=== PATIENT | female | born 1985 | race Caucasian/White ===

== ENCOUNTER → 2017-12-20 | Outpatient (CLI) | payer OTHER ==
[~2017-12-20] MED LIST: BUPIVACAINE MPF 0.25% 10 ML VIAL. ONE; DEXAMETHASONE SOD PHOS 4 MG/ML VIAL ONE; IOHEXOL 300 MG/ML 50 ML VIAL. ONE; LIDOCAINE 1% PF 30 ML VIAL. ONE
== END | disposition home or self-care (01) ==
LOC: SURG 10:04
PROVIDERS: ATTEND Anesthesiology Pain Medicine
DX: M54.16 Radiculopathy, lumbar region (principal); J30.2 Other seasonal allergic rhinitis; Z88.6 Allergy status to analgesic agent
CPT/HCPCS: 64483; 99213; J1100; J2001; J3490; Q9967

== ENCOUNTER → 2018-01-30 | Outpatient (CLI) | payer OTHER ==
[~2018-01-30] MED LIST changes: -DEXAMETHASONE SOD PHOS 4 MG/ML VIAL ONE; -IOHEXOL 300 MG/ML 50 ML VIAL. ONE
== END | disposition home or self-care (01) ==
LOC: SURG 12:31
PROVIDERS: ATTEND Anesthesiology Pain Medicine
DX: M47.812 Spondylosis without myelopathy or radiculopathy, cervical region (principal)
CPT/HCPCS: 64490; 64491; J2001; J3490

== ENCOUNTER → 2018-02-14 | Outpatient (CLI) | payer OTHER | END | disposition home or self-care (01) | LOC: SURG 13:03 | PROVIDERS: ATTEND Anesthesiology Pain Medicine | DX: M47.812 Spondylosis without myelopathy or radiculopathy, cervical region (principal); Z88.6 Allergy status to analgesic agent | CPT/HCPCS: 64490; 64491; J2001; J3490 ==

== ENCOUNTER → 2018-03-07 | Outpatient (CLI) | payer OTHER ==
[~2018-03-07] MED LIST changes: -BUPIVACAINE MPF 0.25% 10 ML VIAL. ONE; +FLUT9.9S NS; +HYDROcodone/APAP 7.5/325MG 1 TAB TABLET PO ONE; +IV RINGERS SOLUTION,LACTATED 1,000 ML IV SCH; -LIDOCAINE 1% PF 30 ML VIAL. ONE; +LORA10TA68 PO; +MIDAZOLAM HCL PF 2 MG/2 ML VIAL. ONE; +NAPR-695 PO
[2018-03-07] MEDS: HYDROcodone/APAP 7.5/325MG 1 TAB TABLET PO ONE (11:41)
[2018-03-07 12:00] VITALS: BP 108/68
== END | disposition home or self-care (01) ==
LOC: SURG 08:33
PROVIDERS: ATTEND Anesthesiology Pain Medicine
DX: M47.812 Spondylosis without myelopathy or radiculopathy, cervical region (principal); Z88.5 Allergy status to narcotic agent
CPT/HCPCS: 64633; 64634; J2250; J3010; 99152; 99153

== ENCOUNTER → 2018-03-21 | Day surgery (SDC) | payer OTHER ==
[~2018-03-21] MED LIST changes: +BUPIVACAINE MPF 0.25% 10 ML VIAL. ONE; +DEXAMETHASONE SOD PHOS 4 MG/ML VIAL ONE; -HYDROcodone/APAP 7.5/325MG 1 TAB TABLET PO ONE; +LIDOCAINE 1% PF 30 ML VIAL. ONE; +ONDANSETRON PF 4 MG/2 ML VIAL. IV ONE
[2018-03-21 09:53] VITALS: BP 118/61
== END ==
LOC: SURG 07:32
PROVIDERS: ATTEND Anesthesiology Pain Medicine
DX: M47.812 Spondylosis without myelopathy or radiculopathy, cervical region (principal); Z87.39 Personal history of other diseases of the musculoskeletal system and connective tissue; Z88.5 Allergy status to narcotic agent
CPT/HCPCS: 64633; 64634; J1100; J2001; J2250; J2405; J3010; J3490; J7120; 62321; 99152; 99153

== ENCOUNTER → 2018-04-11 | Outpatient (CLI) | payer OTHER ==
[2018-03-21 09:53] VITALS: BP 118/61
[~2018-04-11] MED LIST changes: -BUPIVACAINE MPF 0.25% 10 ML VIAL. ONE; -DEXAMETHASONE SOD PHOS 4 MG/ML VIAL ONE; -IV RINGERS SOLUTION,LACTATED 1,000 ML IV SCH; -LIDOCAINE 1% PF 30 ML VIAL. ONE; -MIDAZOLAM HCL PF 2 MG/2 ML VIAL. ONE; -ONDANSETRON PF 4 MG/2 ML VIAL. IV ONE
== END ==
LOC: SURG 08:41
PROVIDERS: ATTEND Anesthesiology Pain Medicine
DX: M54.16 Radiculopathy, lumbar region (principal)
CPT/HCPCS: 64483